=== PATIENT | male | born 1955 | race African-American/Black ===

== ENCOUNTER 2018-08-20 19:44 | Inpatient (IN) | payer OTHER ==
[~2018-08-20] VITALS: Ht 188 cm; Wt 96.8 kg
[~2018-08-20 19:44] MED LIST: ALBUTEROL INH IH; BACTROBAN CREAM30 G1 TOP; BENICAR HCT 401 EAC1 PO; BENICAR40 MG PO; DOXYCYCLINE 10100 M1 PO; GLUCOPHAGE500 MG PO; LANTUS SC; LISINOPRIL40 MG PO; LOPRESSOR25; LOPRESSOR25 PO; MUCINEX600 MG PO; NAPROSYN250 MG PO; NEURONTIN 300300 M1 PO; NORCO 5-325 TA1 EACH PO; NORVASC10 MG PO; NOVOLOG100 UNIT/1 SQ; OMEPRAZOLE20 MG PO; PREDNISONE 20 M20 M1 PO; PREDNISONE 5 MG5 M1; PROVENTIL HFA6.7 G1 INH; SIMVASTATIN40 MG PO; SINGULAIR 10 MG10 M1 PO; TRAMADOL 50 MG50 MG PO; ULTRACET TABLET1 TAB PO
[2018-08-20 19:46] VITALS: BP 154/121
[2018-08-20 21:53] LABS: ABSOLUTE NEUTROPHILS 3.1 thou/uL (1.4-8.2); EOSINOPHILS 1.4 % (0.0-3.0); HEMATOCRIT 39.2 % (42.0-52.0); HEMOGLOBIN 12.9 gm/dL (14.0-18.0); LYMPHOCYTES 28.6 % (24.0-44.0); MCH 31.4 pg (26.0-34.0); MCV 95.2 fL (80.0-100.0); MONOCYTES 10.9 % (1.0-8.0); PLATELET COUNT 129 thou/uL (150-400); POLYS 58.1 % (36.0-66.0); RBC 4.12 mil/uL (4.50-6.00); RDW 15.3 % (10.5-14.5); WBC 5.3 thou/uL (4.0-11.0)
[2018-08-20 21:58] LABS: URINE BILIRUBIN NEGATIVE (Negative); URINE BLOOD 1+ (Negative); URINE CLARITY CLEAR; URINE COLOR YELLOW; URINE GLUCOSE-RANDOM* NEGATIVE (Negative); URINE KETONES NEGATIVE (Negative); URINE LEUKOCYTES-REFLEX NEGATIVE (Negative); URINE NITRITE-REFLEX NEGATIVE (Negative); URINE PROTEIN (DIPSTICK) 2+ (Negative); URINE SPECIFIC GRAVITY 1.025 (1.005-1.035); URINE UROBILINOGEN 0.2 E.U./dl (0.2-1.0)
[2018-08-20 22:05] LABS: CALCIUM 8.9 mg/dL (8.5-10.1); CREATININE 2.1 mg/dL (0.7-1.3); POTASSIUM 4.2 mmol/L (3.5-5.1)
[2018-08-20 22:07] LABS: APTT 25.1 Seconds (24.5-32.8); INR 1.1; PROTIME 11.9 Seconds (9.3-11.4)
[2018-08-20 22:08] LABS: MUCUS 0-3 Light strn/LPF (None Seen); SQUAMOUS None Seen /LPF (0-3)
[2018-08-20 22:09] LABS: BACTERIA-REFLEX None Seen /HPF (None Seen); CRYSTALS None Seen /LPF (None Seen); HYALINE CASTS 0-3 Few /LPF (None Seen); URINE RBC None Seen /HPF (0-2); URINE WBC-REFLEX None Seen /HPF (0-5)
[2018-08-20 22:14] LABS: ALBUMIN 2.6 g/dL (3.4-5.0); TOTAL PROTEIN 8.3 g/dL (6.4-8.2); TROPONIN-I 0.17 ng/mL (<0.06)
[2018-08-20 22:50] LABS: LARGE PLATELETS RARE
[2018-08-20 23:18] VITALS: BP 167/118
[2018-08-20 23:40] VITALS: BP 160/118
[2018-08-20 23:58] VITALS: BP 160/118
[2018-08-20 23:59] VITALS: BP 160/118
--- NOTE | 2018-08-21 05:08 | NUR ---
PT WAS AN ER ADMIT AT 2335 WITH SHORTNESS OF AIR, DIFFICULTY BREATHING, GENERALIZED SWELLING. PT IS ALERT AND ORIENTED. PT IS ON 2L NC. ADMISSION EDUCATION AND ASSESSMENT COMPLETED. UPON ARRIVAL TO THE UNIT, PT IS TARCHYCADIC WITH ELEVATED BLOOD PRESSURE. TOOL AND CUTTER GRINDER SUPERVISOR ORDER TAKERS NOTIFIED. BLOOD PRESSURE MEDS ADMINISTERED TO PT. PT TOLERATED PO INTAKE. PT IS STABLE. DENIES ANY FURTHER NEEDS AT THIS TIME.
[2018-08-21 05:38] LABS: HEMATOCRIT 37.5 % (42.0-52.0); MCH 30.2 pg (26.0-34.0); MCV 94.6 fL (80.0-100.0); RBC 3.97 mil/uL (4.50-6.00); RDW 14.7 % (10.5-14.5); WBC 5.3 thou/uL (4.0-11.0)
[2018-08-21 06:04] VITALS: BP 145/106
[2018-08-21 07:58] VITALS: BP 151/103
[2018-08-21 09:58] LABS: ANION GAP 14 mmol/L (7-16); BUN 37 mg/dL (7-18); CALCIUM 9.7 mg/dL (8.5-10.1); CHLORIDE 102 mmol/L (98-107); CHOLESTEROL 160 mg/dL (<200); CO2 23 mmol/L (21-32); CREATININE 2.2 mg/dL (0.7-1.3); GLUCOSE 141 mg/dL (74-106); HDL CHOLESTEROL 26 mg/dL (>40); LDL CHOLESTEROL 113 mg/dL (<100); MAGNESIUM 1.8 mg/dL (1.8-2.4); POTASSIUM 4.6 mmol/L (3.5-5.1); SODIUM 139 mmol/L (136-145); TC:HDL 6.2 Ratio (Not establshd); TRIGLYCERIDE 109 mg/dL (<150); VLDL 22 mg/dL (<40)
--- NOTE | 2018-08-21 11:03 | EKG ---
[address] [employer] [place] [address] ELECTROCARDIOGRAM REPORT Name: DEMARIO LEVIN Room #: 204-P ADM IN M.R.#: [id number] ������������������ Admission: 08/20/18 ������������������ Attend Phys: Geronimo Saeed MD Discharge: ������������������ Date of : 51 Report #: [id number] ����������������������������������������������������������������� [id number] THIS REPORT FOR: //name// [facility] ED Test Date: 2018-08-20 Test Time: 20:28:11 Pat Name: DEMARIO LEVIN Department: Room: 204 Gender: M Chemist Physical: : 1955 Requested By: Dustin Oro Order Number: [id number] MD: Chico Crane Measurements Intervals [place] Rate: 113 P: 46 W[place]: 156 QRS: -25 QRSD: 100 T: 127 QT: 340 QTc: 467 Interpretive Statements Sinus tachycardia Poor R wave progression Nonspecific ST and T wave abnormality Compared to ECG 06/17/2012 06:15:15 Myocardial infarct finding now present Heart rate has increased Left-axis deviation no longer present Lateral T wave abnormality is less pronounced Electronically Signed On 08-21-2018 11:02:45 SEWING MACHINE ASSEMBLER by Chico Crane [email or web address] ��������������������������������������������� <ELECTRONICALLY SIGNED> ���������������������������������������� By: Chico Crane MD, [facility] ��������������������������������������������� 08/21/18 1102 27 27 Chico Crane MD, [facility] /EPI
[2018-08-21 15:50] VITALS: BP 128/86
[2018-08-21] MEDS ORDERED: ZANAFLEX4 MG PO (16:08)
[2018-08-21] MEDS ORDERED: LIPITOR80 MG PO (16:09)
[2018-08-21] MEDS ORDERED: HYDROCHLOROTH12.5 M1 PO (16:10)
[2018-08-21] MEDS ORDERED: ASPIR 8181 MG PO (16:10)
[2018-08-21] MEDS ORDERED: SPIRIVA INH (16:12)
--- NOTE | 2018-08-21 18:21 | NUR ---
PT CARE ASSUMED APPROX 0700. PT ALERT AND ORIENTED X4. DENIES SOA AND WEANED FOR 2LNC TO RA. C/O LOWER BACK PAIN THIS AM AND HYDROCODONE GIVEN TO MANAGE. PT REPORTS COMPLETE PAIN RELIEF AT THIS TIME. VSS. LASIX GTT REMAINS TO POC. CV CONSULTED AND CHANGED MED DOSAGES. SON AT BEDSIDE AND BOTH RECEIVED UPDATE REGARDING POC. WESTON PATENT. UOP GOOD. NO DISTRESS NOTED.
[2018-08-21 19:36] VITALS: BP 108/77
[2018-08-21 23:09] LABS: GLYCOHEMOGLOBIN (HGB A1C) 7.9 % (4.8-5.6)
[2018-08-22 00:49] VITALS: BP 116/66
[2018-08-22 03:56] LABS: CALCIUM 8.9 mg/dL (8.5-10.1); CREATININE 2.5 mg/dL (0.7-1.3); POTASSIUM 4.1 mmol/L (3.5-5.1)
--- NOTE | 2018-08-22 05:42 | NUR ---
ASSUME CARE 1900. PT/VITALS STABLE. DENIES ANY PAIN AT THIS TIME. TOLERATES ACTIVITY WELL. ASSESSMETN CHARTED. PROGRESSING MODERATELY WITH POC. ADEQUATE REST NOTED THROUGH THE NIGHT. PLAN IS TO CONTINUE DIURESING PATIENT WITH LASIX DRIP AT 10ML/HR. PT TOLERATING DRIP/ELECTROLYTES NORMAL,, VOIDING ADEQUATELY. WESTON IN FOR ADEQUATE REST. WILL CONTINUE TO MONITOR AND FOLLOW WITH POC
[2018-08-22 05:45] VITALS: BP 109/80
[2018-08-22 07:37] VITALS: BP 112/87
--- NOTE | 2018-08-22 09:23 | EKG ---
[place] [address] [facility] [place] [address] ELECTROCARDIOGRAM REPORT Name: DEMARIO LEVIN Room #: 204-P ADM IN M.R.#: [id number] ������������������ Admission: 08/20/18 ������������������ Attend Phys: Ad Alston MD Discharge: ������������������ Date of : 51 Report #: [id number] ����������������������������������������������������������������� [id number] THIS REPORT FOR: //name// [facility] Test Date: 2018-08-22 Test Time: 06:02:51 Pat Name: DEMARIO LEVIN Department: Room: 204 P Gender: M Grape Pruner: DONNA : 1955 Requested By: Chico Crane Order Number: [id number] MD: Chico Crane Measurements Intervals [place] Rate: 88 P: 22 RI: 183 QRS: 0 QRSD: 110 T: 205 QT: 402 QTc: 487 Interpretive Statements Sinus rhythm Ventricular premature complex LVH with IVCD and secondary repol abnrm Borderline prolonged QT interval Compared to ECG 08/20/2018 20:28:11 Ventricular premature complex(es) now present Sinus tachycardia no longer present Electronically Signed On 08-22-2018 9:23:09 CHIEF OF PARTY by Chico Crane [email or web address] ��������������������������������������������� <ELECTRONICALLY SIGNED> ���������������������������������������� By: Chico Crane MD, FACC ��������������������������������������������� 08/22/18 0923 0602 Chico Crane MD, [facility] /EPI
[2018-08-22 10:52] VITALS: BP 112/73
--- NOTE | 2018-08-22 13:10 | 2DMMODE ---
[facility] [address] [place] [address] 2 D/M-MODE ECHOCARDIOGRAM Name: DEMARIO LEVIN Room #: 204-P ADM IN .R.#: [id number] ������������� Admission: 08/20/18 ������������� Attend Phys: Ad Alston MD Discharge: ��� ������������� ��� Date of : 51 Date of Service: 08/22/18 1310 �� Report #: [id number] �������� ��������������������������������������������[id number] THIS REPORT FOR: //name// APPROVED REPORT Study performed: 08/22/2018 09:23:23 EXAM: Comprehensive 2D, Doppler, and color-flow Echocardiogram Patient Location: Bedside Room #: 204 Status: routine BSA: 2.29 HR: 88 bpm BP: 112/87 mmHg Rhythm: NSR Other Information Study Quality: Good Risk Factors: Cardiac Risk Factors: Hyperlipidemia, DM, Smoking Indications Congestive Heart Failure COPD 2D Dimensions IVSd: 12.76 (7-11mm) LVOT Diam: 20.00 (18-24mm) LVDd: 58.66 mm PWd: 15.37 (7-11mm) Ascending Ao: 36.83 (22-36mm) LVDs: 54.60 (25-40mm) Aortic Root: 33.10 mm LV Single Plane 4CH: 25.15 % LV Single Plane 2CH: 21.37 % Biplane EF: 23.1 % Volumes Left Atrial Volume (Systole) Single Plane 4CH: 74.32 mL Single Plane 2CH: 52.28 mL LA ESV Index: 30.00 mL/m2 Aortic Valve AoV Peak Isaiah.: 1.12 m/s AO Peak Gr.: 4.98 mmHg LVOT Max P.87 mmHg [facility] [address] [place] [address] 2 D/M-MODE ECHOCARDIOGRAM Name: POONAMDEMARIO Villarreal Room #: 204-P ADM IN ..#: [id number] ������������� Admission: 08/20/18 ������������� Attend Phys: Ad Alston MD Discharge: ��� ������������� ��� Date of : 51 Date of Service: 08/22/18 1310 �� Report #: [id number] �������� ��������������������������������������������[id number] LVOT Max V: 0.68 m/s YEIMI Vmax: 2.01 cm2 Pulmonary Valve PV Peak Isaiah.: 1.04 m/s PV Peak Gr.: 4.31 mmHg NY End Vmax: 1.48 m/s Pulmonary Vein P Vein S: 0.62 m/s P Vein A: 0.25 m/s P Vein D: 0.57 m/s P Vein A Dur.: 72.7 msec P Vein S/D Ratio: 1.09 Tricuspid Valve TR Peak Isaiah.: 2.35 m/s RAP Estimate: 7.00 mmHg TR Peak Gr.: 22.03 mmHg PA Pressure: 29.00 mmHg TV Max P.00 mmHg Left Ventricle The left ventricle is normal size. There is global hypokinesis of the left ventricle. Mild to moderate concentric left ventricular hypertrophy. Left ventricular systolic function is severely decreased. LVEF is 20-25%. This study is not technically sufficient to allow evaluation of the LV diastolic function. Right Ventricle Right ventricle is dilated. Right ventricle is hypokinetic. Atria The left atrium size is normal. Right atrium is dilated. Aortic Valve The aortic valve is sclerotic. No aortic regurgitation is present. There is no aortic valvular stenosis. Mitral Valve The mitral valve is normal in structure. Moderate mitral regurgitation. No evidence of mitral valve stenosis. Tricuspid Valve The tricuspid valve is normal in structure. Moderate tricuspid regurgitation. Pulmonary artery pressure is 30 mmHg. Pulmonic Valve The pulmonary valve is normal in structure. Trace pulmonic [facility] [address] [place] [address] 2 D/M-MODE ECHOCARDIOGRAM Name: PRINCEDEMARIO Augustine Room #: 204-P [facility] IN .R.#: [id number] ������������� Admission: 08/20/18 ������������� Attend Phys: Ad Alston MD Discharge: ��� ������������� ��� Date of : 51 Date of Service: 08/22/18 1310 �� Report #: [id number] �������� ��������������������������������������������[id number] regurgitation. Great Vessels The aortic root is normal in size. IVC is normal in size and collapses >50% with inspiration. Pericardium Trace pericardial effusion. <Conclusion> Left ventricular systolic function is severely decreased. LVEF is 20-25%. The aortic valve is sclerotic. No aortic regurgitation or stenosis The mitral valve is normal in structure. Moderate mitral regurgitation. Moderate tricuspid regurgitation. Pulmonary artery pressure of 30 mmHg. Trace pericardial effusion. ��������������������������������������������� <ELECTRONICALLY SIGNED> ���������������������������������������� By: Chico Crane MD, FACC ��������������������������������������������� 08/22/181309 09 09 Chico Crane MD, FACC /INF
[2018-08-22 14:57] VITALS: BP 107/77
--- NOTE | 2018-08-22 15:02 | NUR ---
VSS REMAINS NSR HR 80-90, PT HAVING SHORT RUNS VT 3-5 BT, WITH ONE 29 BT RUN AT 12N , PT ASYTOMATIC, BP 112/73. IV LASIX DC'D AT 1500 TODAY, DIEURESING WELL THROUGH WESTON. UP TO CHAIR WITH PT, NEEDS WALKER AND ASSIST TO BE STEADY WILL CONTINUE TO MONITER AND CARE FOR PT PER PLAN OF CARE
[2018-08-22 20:50] VITALS: BP 100/72
--- NOTE | 2018-08-23 03:20 | NUR ---
[facility] CARE CARE 1900. VSS- 10 BT RUN VTACH-NONSYMPTOMATIC. ASSESSMENT CHARTED. PT DENIES ANY CP, SOA, OR OTHER CONCERNS. UP TO BATHROOM X1 ASSIST WITH WALKER TO BATHROOM, VOIDING WELL. PLAN FOR LABS THIS AM. WILL CONTINUE TO MONITOR AND WITH POC.
[2018-08-23 03:41] VITALS: BP 100/73
[2018-08-23 04:38] LABS: CALCIUM 8.8 mg/dL (8.5-10.1); CREATININE 2.6 mg/dL (0.7-1.3); POTASSIUM 3.6 mmol/L (3.5-5.1)
[2018-08-23 07:48] VITALS: BP 105/74
[2018-08-23 11:16] VITALS: BP 122/90
[2018-08-23 14:47] VITALS: BP 94/59
--- NOTE | 2018-08-23 15:21 | NUR ---
met with patient who resides at home with grandson, age 9, his son and dtr. Patient reports always family present at home to assist as needed. He resides in independent home with all needs on one level. He uses a cane for ambulation but has been using a walker here in hospital. Patient will need walker for home. Discussed possible HH [place]. Patient has no PCP. [facility]. Gave patient list of [facility] providers. He plans to review with son, offered to make apt prior to leaving hospital. casemgt following.
--- NOTE | 2018-08-23 15:48 | NUR ---
VSS REMIANS NSR WITH SHORT PERIODS OF ST IN THE 120'S LASTING 30 MINUTES , ALSO SHORT 3-4 BT RUNS OF VT, PT ASYTOMATIC. BP 105-122/90. LUNGS DIMINISHED O2 SAT RA IS 94%. PT UP WITH PT TODAY WITH HR UP TO 120 WITH ACTIVITY. PT UP WITH WALKER AND SBA, STEADIER TODAY ON FEET. WILL CONTINUE TO MONITER AND CARE FOR PT PER PLAN OF CARE
[2018-08-23 20:26] VITALS: BP 103/73
[2018-08-24 04:03] VITALS: BP 98/66
[2018-08-24 04:06] LABS: CALCIUM 8.6 mg/dL (8.5-10.1); CREATININE 2.6 mg/dL (0.7-1.3); POTASSIUM 3.3 mmol/L (3.5-5.1)
--- NOTE | 2018-08-24 04:50 | NUR ---
PT HAD COMPANY LAST NOC, ALERT/ORIENTED X4, PAIN CONTROLED BY NORCO, ACCUCHECK AC/HS AND TREATED PER SLIDING SCALE, UP X1 ASSIST, VOIDING, ON FLUID RESTRICTION AND COMPLIANT, ON ROOM AIR, POTASSIUM THIS MORNING DROPPED TO 3.3 (3.6 YESTERDAY), LUNGS DIMINISHED, CONTINUE TO ENC. TO USE IS AGGRESSIVELY, HOURLY ROUNDING, SINUS RHYTHM ON MONITOR, NO RUNS OF VTACH NOTED, MONITORED.
[2018-08-24 08:25] VITALS: BP 111/63
[2018-08-24 11:32] VITALS: BP 120/73
[2018-08-24] MEDS ORDERED: LISINOPRIL20 MG PO (12:49)
[2018-08-24] MEDS ORDERED: DEMADEX20 MG PO (12:49)
[2018-08-24] MEDS ORDERED: COREG25 MG PO (13:23)
[2018-08-24 15:08] VITALS: BP 112/80
--- NOTE | 2018-08-24 17:14 | NUR ---
Patient to dc home. Patient interested in f/u care with Dr Viramontes. Called office and sp with scheduling who reports no opening until October. She reports for casemgt to leave message with RN who will call return call to determine if can get patient in sooner. Left message at this time no return call today. obtained walker for patient for home via [employer]. Encouraged patient to cont to call for apt.
--- NOTE | 2018-08-24 18:46 | NUR ---
ASSUMED PATIENT CARE THIS AM. PATIENT A&OX4, ROOM AIR. UP AD MAUREEN IN ROOM WITH WALKER. PAIN STATED IN LOWER EXTREMITIES WITH EDEMA PRESENT, MEDICATION GIVEN WITH RELIEF. PLAN TO CONTINUE TO DIURESE AND WATCH ELECTROLYTES. PLAN TO DISCHARGE TOMORROW. PATIENT HAS OWN WALKER AT BEDSIDE ISSUED THIS AFTERNOON.
[2018-08-24 19:00] VITALS: BP 117/75
--- NOTE | 2018-08-25 03:42 | NUR ---
ASSUMED PT CARE AT 1900. PT A/OX4, VITAL SIGNS STABLE, ASSESSMENT CHARTED. NO COMPLAINTS OF PAIN/CHEST PAIN. NO COMPLAINTS OF SOA. PT RESTED WELL THROUGH THE THE NIGHT. PROGRESSING TOWARD PALN OF CARE. WILL CONTINUE TO MONITOR.
[2018-08-25 04:32] VITALS: BP 104/70
[2018-08-25 04:41] LABS: CALCIUM 8.9 mg/dL (8.5-10.1); CREATININE 2.6 mg/dL (0.7-1.3); POTASSIUM 3.7 mmol/L (3.5-5.1)
[2018-08-25 07:35] VITALS: BP 115/77
[2018-08-25] MEDS ORDERED: LIPITOR80 MG PO (08:47)
[2018-08-25] MEDS ORDERED: K-DUR 20 MEQ T20 MEQ PO (08:47)
[2018-08-25] MEDS ORDERED: CARVEDILOL25 MG PO (08:47)
[2018-08-25 11:50] VITALS: BP 126/86
[2018-08-25 12:36] VITALS: BP 126/86
--- NOTE | 2018-08-25 12:37 | NUR ---
Pt provided address and phone number for Dr. Viramontes's office and encouraged him to call them to work on scheduling a new pt appt. Message left for the office again today to let them know he was dcing and needed a f/u to be scheduled. Pt dcing home today.
--- NOTE | 2018-08-25 15:40 | NUR ---
ASSUMED PATIENT CARE THIS AM. PATIENT A&OX4, ROOM AIR. NO N/V, N/T STATED. PAIN MANAGED WITH MEDICATION. PATIENT UP WITH WALKER IN ROOM. PATIENT VOIDS PER URINAL. TOLERATING DIET. PLAN TO DISCHARGE HOME THIS AFTERNOON/EVENING WHEN SON ARRIVES. NO COMPLAINTS STATED.
[2018-08-25 16:35] VITALS: BP 100/72
--- NOTE | 2018-08-25 19:47 | NUR ---
ASSUMED PT CARE AT CHANGE OF SHIFT. PT IN BED WAITING FOR SON TO MANIFOLD OPERATOR. PT A/OX4, BG 103, PM MEDS GIVEN PER PT REQUEST. PAIN MEDICATION GIVEN TO MANAGE PAIN IN BACK AND LOWER EXTREMITIES. PT'S SON ARRIVED AT ABOUT 191. IV DISCONTINUED. PT LEFT UNIT AT ABOUT 1930. PT STALE AT DISCHARGE.
== END 2018-08-25 19:30 | disposition home or self-care (01) | DRG 682 ==
LOC: ER 19:44 → 2N 20:16 → EROBS 20:16 → 2N 23:05
PROVIDERS: Emergency Medicine; Internal Medicine; Nurse Practitioner; ADMIT Hospitalist
DX: N17.9 Acute kidney failure, unspecified (principal); J96.01 Acute respiratory failure with hypoxia; I50.43 Acute on chronic combined systolic (congestive) and diastolic (congestive) heart failure; I42.9 Cardiomyopathy, unspecified; I47.2 Ventricular tachycardia; I13.0 Hypertensive heart and chronic kidney disease with heart failure and stage 1 through stage 4 chronic kidney disease, or unspecified chronic kidney disease; J45.909 Unspecified asthma, uncomplicated; D69.6 Thrombocytopenia, unspecified; R60.1 Generalized edema; E78.5 Hyperlipidemia, unspecified; F17.210 Nicotine dependence, cigarettes, uncomplicated; N18.4 Chronic kidney disease, stage 4 (severe); E11.22 Type 2 diabetes mellitus with diabetic chronic kidney disease; R74.0 Nonspecific elevation of levels of transaminase and lactic acid dehydrogenase [LDH]; G47.33 Obstructive sleep apnea (adult) (pediatric); J44.9 Chronic obstructive pulmonary disease, unspecified; Z60.2 Problems related to living alone; T50.2X5A Adverse effect of carbonic-anhydrase inhibitors, benzothiadiazides and other diuretics, initial encounter; E87.6 Hypokalemia; F10.10 Alcohol abuse, uncomplicated; M62.84 Sarcopenia; K21.9 Gastro-esophageal reflux disease without esophagitis; Z91.048 Other nonmedicinal substance allergy status; Z91.19 Patient's noncompliance with other medical treatment and regimen; Z79.82 Long term (current) use of aspirin; Z79.899 Other long term (current) drug therapy; Z82.49 Family history of ischemic heart disease and other diseases of the circulatory system; Z71.6 Tobacco abuse counseling; Z99.81 Dependence on supplemental oxygen
CPT/HCPCS: 10078; 10081

== ENCOUNTER 2020-09-03 11:45 | Inpatient (IN) | payer MEDICARE, OTHER ==
[~2020-09-03] VITALS: Ht 188 cm; Wt 84.4 kg
--- NOTE | ~2020-09-03 | HC ---
[facility] [place] [address] CONSULTATION Name: DEMARIO LEVIN Room #: 462-P ADM IN M.R.#: [id number] Admission: 09/03/20 Attend Phys: Geronimo Saeed MD Discharge: Date of : 51 Report #: [id number] THIS REPORT FOR: cc: Rodney Ramirez Kevin E. DO Al-Absi, Ahmed I. MD ~ REASON FOR CONSULTATION: Acute kidney injury on top of chronic kidney disease. REASON FOR PRESENTATION: Worsening bilateral lower extremity edema. HISTORY OF PRESENT ILLNESS: This is a 65-year-old with extensive past medical history including and not limited to diabetes mellitus, hypertension, hyperlipidemia, status post AICD placement. He has a history of COPD, obstructive sleep apnea. He also has history of atrial fibrillation. He has a history of chronic kidney disease. He is known to have alcoholic cirrhosis with hepatitis C. He presented after his family was concerned about significant lower extremity edema and weight gain. The patient's hospitalization is usually at [facility]. He was told that he might need to go on dialysis. On arrival to the Emergency Room, the patient's creatinine was elevated at 6.7. We only have laboratory values on this patient from 2019 and at that time about a year ago, his creatinine was in the 2.5 range. He had a Abad catheter placed in the Emergency Room with about a liter of urine so far. He has significant hyponatremia on arrival. The patient was initiated on appropriate therapy for his current comorbid conditions. I was asked to evaluate the patient regarding his acute kidney injury and chronic kidney disease. MEDICATIONS: 1. Albuterol. 2. Lasix 40 mg twice a day. 3. Levothyroxine. 4. Gabapentin. 5. Pantoprazole. ALLERGIES: None. PAST MEDICAL HISTORY: Extensive and includes the followin. COPD. 2. Hypertension. 3. Diabetes mellitus. 4. Cardiomyopathy. 5. Obstructive sleep apnea. 6. Congestive heart failure. 7. Status post automatic implantable cardioverter-defibrillator. 8. History of liver cirrhosis. 9. Hepatitis C. 10. Chronic kidney disease with a baseline creatinine in the 2 range. [facility] [address] [place] [address] CONSULTATION Name: DEMARIO LEVIN Room #: 462-P [facility] IN M.R.#: [id number] Admission: 09/03/20 Attend Phys: Geronimo Saeed MD Discharge: Date of : 51 Report #: [id number] FAMILY HISTORY: Significant for hypertension. SOCIAL HISTORY: No drug or alcohol abuse. REVIEW OF SYSTEMS: GENERAL: Significant for weakness and lethargy. CARDIOVASCULAR: Significant for shortness of breath. PULMONARY: No cough or hemoptysis. GASTROINTESTINAL: No nausea or vomiting. GENITOURINARY: No frequency, no urgency. MUSCULOSKELETAL: As per the history of present illness. PHYSICAL EXAMINATION: VITAL SIGNS: Temperature 37, pulse rate is 50, respiratory rate is 18, blood pressure is 131/56. HEAD AND NECK: No jugular venous distention. CHEST: Decreased air entry bilaterally. CARDIOVASCULAR: No rub. ABDOMEN: Soft. LOWER EXTREMITIES: +4 edema. LABORATORY DATA: Hemoglobin is 8.4, platelets are 80. White blood cell count is 3000. Sodium is 125, BUN is 63, creatinine is 6.7. IMPRESSION AND PLAN: 1. Acute kidney injury. 2. Chronic kidney disease. 3. Fluid overload. 4. Cardiomyopathy, severe. Last echo in 2019 showed ejection fractions of around 20%. 5. Initiate the patient on appropriate diuresis. 6. We will see how he is going to respond to the current diuretic regimen. 7. His kidney function has significantly worsened in the last year and we will have to obtain the medical records from [facility]. 8. Salt restriction. 9. Unfortunately, he has so many comorbid conditions including his ongoing liver issues, heart failure. He is not a candidate for hemodialysis and he would not do well at all with hemodialysis, we will discuss with his family members. 10. Blood pressure seems to be stable on beta duy. Avoid angiotensin [place] [address] CONSULTATION Name: DEMARIO LEVIN Room #: 462-P ADM IN M.R.#: [id number] Admission: 09/03/20 Attend Phys: Geronimo Saeed MD Discharge: Date of : 51 Report #: [id number] 11. Discontinue gabapentin. 12. Continue to follow daily electrolytes and renal function panel. By: 0759 0818 Cuco Wen, /nt
[~2020-09-03 11:45] MED LIST changes: +ASPIR 8181 MG PO; +CARVEDILOL25 MG PO; +COREG25 MG PO; +DEMADEX20 MG PO; +HYDROCHLOROTH12.5 M1 PO; +K-DUR 20 MEQ T20 MEQ PO; +LIPITOR80 MG PO; +LISINOPRIL20 MG PO; +SPIRIVA INH; +ZANAFLEX4 MG PO
[2020-09-03 11:46] VITALS: BP 136/88
[2020-09-03] MEDS ORDERED: FUROSEMIDE 40 M40 MG PO (11:51)
[2020-09-03] MEDS ORDERED: LEVO-T25 MCG PO (11:52)
[2020-09-03] MEDS ORDERED: ONDANSETRON HCL4 M2 PO (11:56)
[2020-09-03] MEDS ORDERED: OYSTER SHELL C500 MG PO (11:57)
[2020-09-03] MEDS ORDERED: PROTONIX40 M2 PO (11:57)
[2020-09-03] MEDS ORDERED: PRO-STAT LIQUID30 M1 PO (11:58)
[2020-09-03] MEDS ORDERED: MIRALAX119 GM PO (11:58)
[2020-09-03] MEDS ORDERED: PROMS25 WY RECTAL (11:59)
[2020-09-03] MEDS ORDERED: RENAL-VITE TAB0.8 MG PO (11:59)
[2020-09-03] MEDS ORDERED: SENNA PLUS TAB1 EACH PO (12:00)
[2020-09-03] MEDS ORDERED: FLOMAX0.4 MG PO (12:00)
[2020-09-03 12:12] LABS: HEMATOCRIT 25.3 % (42.0-52.0); HEMOGLOBIN 8.4 gm/dL (14.0-18.0); MCH 30.5 pg (26.0-34.0); MCHC 33.2 g/dL (28.0-37.0); MCV 91.9 fL (80.0-100.0); RBC 2.75 mil/uL (4.50-6.00); RDW 18.1 % (10.5-14.5); WBC 2.9 thou/uL (4.0-11.0)
[2020-09-03 12:26] LABS: ANION GAP 8 mmol/L (7-16); BUN 62 mg/dL (7-18); CHLORIDE 90 mmol/L (98-107); CO2 26 mmol/L (21-32); CREATININE 6.4 mg/dL (0.7-1.3); GLUCOSE 91 mg/dL (74-106); POTASSIUM 4.1 mmol/L (3.5-5.1); SODIUM 124 mmol/L (136-145)
[2020-09-03 12:36] LABS: ALBUMIN 2.7 g/dL (3.4-5.0); SGOT 66 U/L (15-37); SGPT 34 U/L (30-65); TOTAL BILIRUBIN 2.5 mg/dL (0.2-1.0); TOTAL PROTEIN 8.2 g/dL (6.4-8.2); TROPONIN-I <0.06 ng/mL (<0.06)
[2020-09-03 13:41] LABS: ABSOLUTE NEUTROPHILS 1.4 thou/uL (1.4-8.2)
[2020-09-03 13:42] LABS: POLYCHROMASIA SLIGHT
[2020-09-03 13:45] LABS: PLATELET COUNT 84 thou/uL (150-400)
--- NOTE | 2020-09-03 14:13 | EKG ---
[address] [place] [address] ELECTROCARDIOGRAM REPORT Name: DEMARIO LEVIN Room #: 170-5 ADM IN M.R.#: [id number] Admission: 09/03/20 Attend Phys: Geronimo Saeed MD Discharge: Date of : 51 Report #: [id number] [facility] ED Test Date: 2020-09-03 Test Time: 11:59:47 Pat Name: DEMARIO LEVIN Department: Room: 170 Gender: M Upscale Security Officer: cu : 1955 Requested By: Nish Conway Order Number: [id number] MD: Theron Ma Measurements Intervals [place] Rate: 50 P: 23 CT: 135 QRS: 174 QRSD: 220 T: 11 QT: 698 QTc: 637 Interpretive Statements Atrial-sensed ventricular-paced rhythm No further analysis attempted due to paced rhythm Compared to ECG 08/22/2018 06:02:51 Sinus rhythm no longer present Ventricular premature complex(es) no longer present Intraventricular conduction delay no longer present Left ventricular hypertrophy no longer present Early repolarization no longer present Electronically Signed On 09-03-2020 14:13:06 COIL CONNECTOR REPAIRER by Theron Ma [email or web address] <ELECTRONICALLY SIGNED> By: Theron Ma MD, [facility] 09/03/20 1413 1159 1159 Theron Ma MD, [facility] /EPI
[2020-09-03 14:39] LABS: OBSERVED RETIC COUNT 1.23 % (0.6-2.6)
[2020-09-03 14:48] VITALS: BP 127/65
--- NOTE | 2020-09-03 15:03 | NUR ---
THIS FUNERAL CAR DRIVER SPOKE WITH DR KRAUSE REGARDING PT C/O NAUSEA.
[2020-09-03 15:37] VITALS: BP 116/66
[2020-09-03 16:00] VITALS: BP 142/67
[2020-09-03 16:13] VITALS: BP 142/67
[2020-09-03 17:18] LABS: % SATURATION 46 % (20-39); IRON 106 ug/dL (65-175); TIBC 232 ug/dL (250-450)
--- NOTE | 2020-09-03 19:32 | NUR ---
PT ARRIVED TO FLOOR FROM ED AT 1600 IN STABLE CONDITION.ADMISSION HISTORY, ASSESSMENTAND CARE PLAN COMPLETED.DR CALHOUN AND ALBERTO HERE.NEW ORDER NOTED. PT BLOOD SUGAR AT DINNER WAS 78.NO INSULIN GIVEN.NOTIFIED PT SON ABOUT ADMISSION TO UNIT AND SECRET CODE GIVEN.REPORT OFF TO KATLYN SCHNEIDER.
[2020-09-03 19:44] VITALS: BP 131/56
--- NOTE | 2020-09-04 04:52 | NUR ---
Assumed pt care at 1900. A/OX4,VSS.Up with SBA. C/o pain to guicho shoulders and BLE,Temitope MLT notified and orders obtained for [place]/Tylenol;medicated with [place] and effective. Has a lemus to DD with dark yellow urine noted,passing flatus. Vpaced on telemetry. Pt woke up with confusion this morning,fall precautions in place and frequent checks on pt;easily redirected. Will continue to monitor pt.
[2020-09-04 05:46] LABS: ABSOLUTE NEUTROPHILS 1.8 thou/uL (1.4-8.2); EOSINOPHILS 5.1 % (0.0-3.0); HEMATOCRIT 24.9 % (42.0-52.0); HEMOGLOBIN 8.4 gm/dL (14.0-18.0); LYMPHOCYTES 22.6 % (24.0-44.0); MCH 30.8 pg (26.0-34.0); MCHC 33.9 g/dL (28.0-37.0); MONOCYTES 10.4 % (1.0-8.0); PLATELET COUNT 80 thou/uL (150-400); POLYS 60.9 % (36.0-66.0); RBC 2.74 mil/uL (4.50-6.00); RDW 18.2 % (10.5-14.5)
[2020-09-04 05:56] LABS: APTT 35.9 Seconds (24.5-32.8); INR 1.5; PROTIME 16.3 Seconds (9.3-11.4)
[2020-09-04 06:14] LABS: ALBUMIN 2.6 g/dL (3.4-5.0); ANION GAP 9 mmol/L (7-16); BUN 63 mg/dL (7-18); CALCIUM 8.7 mg/dL (8.5-10.1); CHLORIDE 91 mmol/L (98-107); CO2 25 mmol/L (21-32); CREATININE 6.7 mg/dL (0.7-1.3); GLUCOSE 81 mg/dL (74-106); MAGNESIUM 2.2 mg/dL (1.8-2.4); POTASSIUM 4.1 mmol/L (3.5-5.1); SGOT 64 U/L (15-37); SGPT 30 U/L (30-65); SODIUM 125 mmol/L (136-145); TOTAL BILIRUBIN 2.4 mg/dL (0.2-1.0); TOTAL PROTEIN 8.1 g/dL (6.4-8.2); TROPONIN-I <0.06 ng/mL (<0.06)
--- NOTE | 2020-09-04 08:19 | EKG ---
[address] [place] [address] ELECTROCARDIOGRAM REPORT Name: DEMARIO LEVIN Room #: 462- ADM IN M.R.#: [id number] Admission: 09/03/20 Attend Phys: Geronimo Saeed MD Discharge: Date of : 51 Report #: [id number] [facility] Test Date: 2020-09-04 Test Time: 07:31:20 Pat Name: DEMARIO LEVIN Department: Room: 462 Gender: M Costume Seamstress: NAZARIO : 1955 Requested By: Chico Crane Order Number: [id number] MD: Chico Crane Measurements Intervals [place] Rate: 61 P: 0 SC: 55 QRS: 170 QRSD: 151 T: 18 QT: 519 QTc: 523 Interpretive Statements Sinus rhythm with probable biventricular pacing Compared to ECG 09/03/2020 11:59:47 No significant change was found Electronically Signed On 09-04-2020 8:19:10 CITY BUS DRIVER by Chico Crane [email or web address] <ELECTRONICALLY SIGNED> By: Chico Crane MD, [facility] 09/04/20818 0 0 Chico Crane MD, FACC /EPI
[2020-09-04 08:20] VITALS: BP 128/59
--- NOTE | 2020-09-04 10:48 | 2DMMODE ---
[facility] [place] [address] 2 D/M-MODE ECHOCARDIOGRAM Name: DEMARIO LEVIN Room #: 462-P ADM IN M.R.#: [id number] Admission: 09/03/20 Attend Phys: Geronimo Saeed MD Discharge: Date of : 51 Report #: [id number] THIS REPORT FOR: cc: Rodney Ramirez,Theron Christianson MD [facility] ~ APPROVED REPORT Study performed: 09/04/2020 09:35:22 EXAM: Comprehensive 2D, Doppler, and color-flow Echocardiogram Patient Location: Bedside Room #: 462 Status: routine BSA: 2.12 HR: 61 bpm BP: 128/59 mmHg Rhythm: NSR Other Information Study Quality: Good Indications Bilateral leg edema. Hx: Cardiomyopathy (20-25%), ICD, CHF, Afib, COPD, HTN, HLD. 2D Dimensions RVDd: 34.35 mm IVSd: 10.12 (7-11mm) LVOT Diam: 20.07 (18-24mm) LVDd: 53.62 mm PWd: 13.49 (7-11mm) Ascending Ao: 10.26 (22-36mm) LVDs: 27.49 (25-40mm) Left Atrium: 46.50 (27-40mm) Aortic Root: 36.69 mm Volumes Left Atrial Volume (Systole) Single Plane 4CH: 81.07 mL Single Plane 2CH: 80.75 mL LA ESV Index: 42.00 mL/m2 Aortic Valve AoV Peak Isaiah.: 1.29 m/s AO Peak Gr.: 6.67 mmHg LVOT Max P.54 mmHg LVOT Max V: 1.28 m/s [facility] [place] [address] 2 D/M-MODE ECHOCARDIOGRAM Name: POONAMDEMARIO Room #: 462-P [facility] IN .R.#: [id number] Admission: 09/03/20 Attend Phys: Geronimo Saeed MD Discharge: Date of : 51 Report #: [id number] Vmax: 3.13 cm2 Mitral Valve E/A Ratio: 1.3 MV Decel. Time: 277.20 ms MV E Max Isaiah.: 0.62 m/s MV A Isaiah.: 0.48 m/s MV PHT: 80.39 ms IVRT: 83.04 ms Pulmonary Valve PV Peak Isaiah.: 1.27 m/s PV Peak Gr.: 6.41 mmHg Tricuspid Valve TR Peak Isaiha.: 3.54 m/s RAP Estimate: 15.00 mmHg TR Peak Gr.: 50.15 mmHg PA Pressure: 65.00 mmHg Left Ventricle The left ventricle is normal size. Mild concentric left ventricular hypertrophy. Left ventricular systolic function is low normal. LVEF is 5055 %. Right Ventricle Right ventricle is dilated. The right ventricular systolic function is normal. Device lead is present in the right ventricle. Atria Moderate biatrial enlargement. Aortic Valve The aortic valve is normal in structure. No aortic regurgitation is present. There is no aortic valvular stenosis. Mitral Valve The mitral valve is normal in structure. Mild to moderate mitral regurgitation. Tricuspid Valve The tricuspid valve is normal in structure. Moderate tricuspid regurgitation. Estimated PAP is 60-65mmHg. Pulmonic Valve The pulmonary valve is normal in structure. Mild pulmonic regurgitation. [facility] [place] [address] 2 D/M-MODE ECHOCARDIOGRAM Name: DEMARIO LEVIN Room #: 462-P [facility] IN M.R.#: [id number] Admission: 09/03/20 Attend Phys: Geronimo Saeed MD Discharge: Date of : 51 Report #: [id number] Great Vessels The aortic root is normal in size. IVC is dilated and collapses <50% with inspiration. Pericardium Trivial pericardial effusion. <Conclusion> Normal left ventricular size/mild concentric hypertrophy Ejection fraction 50-55% Grade 1 diastolic dysfunction Mildly dilated RV/abnormal systolic function Moderate biatrial enlargement Color-flow Doppler study was performed of the aortic/mitral/tricuspid/pulmonary valve Normal aortic valve structure and function Mild-moderate posteriorly directed mitral valve insufficiency Moderate tricuspid valve insufficiency Pulmonry artery systolic pressure estimated 60-65 mmHg Dilated IVC, minimally responsive to respiration No pericardial effusion <ELECTRONICALLY SIGNED> By: Theron Ma MD, FACC 09/04/207 46 46 Theron Ma MD, FACC /INF
--- NOTE | 2020-09-04 12:04 | NUR ---
PT ADMTITED RELATED TO RENAL FAILURE,PERIPHERAL EDEMA. CM REVIEWED CHART AND SPOKE WITH CARE TEAM. CM CALLED AND SPOKE WITH PT'S SON THIS DAY. HE INDICATED THAT PT HAD BEEN AT [facility] FOR SKILLED REHAB SERVICES PRIOR TO ADMISSION. SON WAS NOT PLEASED WITH THE CARE PT HAD BEEN GETTING THERE AND PT WAS ADMITTED TO HOSPITAL. HE INDICATED THAT PT HAD BEEN AT [facility] PRIOR TO GOING TO [facility] AND THAT PRIOR TO THAT HOSPITAL STAY HE HAD BEEN LIVING IN A HOUSE WITH HIS SON, DTR, AND GSON. HE INDICATED THAT PT HAD BEEN ABLE TO DO HIS OWN ADLS AND HAD BEEN USING A CANE OR A FWW TO ASSIST WITH MOBILITY. SO INDICATED HE IS RECEPTIVE TO SKILLED POST ACUTE CARE STAY IF RECOMMENDED UPON DC BUT NOT AT [facility]. CM TO EMAIL HIM LIST OF [facility] FACILITIES TO [email or web address]. PT HAD ECHO THIS DAY. CM TO FOLLOW INDICATED WITH DC PLANNING.
[2020-09-04 15:55] VITALS: BP 147/70
--- NOTE | 2020-09-04 18:06 | NUR ---
Assumed pt care at 7am.Pt in bed very drowsy with slurred speech.Assessment completed.vss low blood sugar noted.Treated with apple juice.Dr Winkler and Ray here,order noted.Echo done after breakfast.Pt rhythm per manufacturing director was paced.Pt requested to dangle at bs for 30 minutes this evening.Trouble Locater stays with pt and later transfered back to bed.[place] given for bilateral shoulder pain.Will continue to monitor.
[2020-09-04 20:00] VITALS: BP 141/62
--- NOTE | 2020-09-05 01:16 | NUR ---
reassessment complete patient c/o generalized pain gave prn hydrocodone 5/325 @ 2303. resident currently in bed with eyes closed respirations even non labored at 18 bpm. breathing treatment given by RT @ 9970 tolerated well . no furthur c/o SOB. No c/o pain or discomforted noted.
[2020-09-05 05:49] LABS: ALBUMIN 2.5 g/dL (3.4-5.0); CALCIUM 8.3 mg/dL (8.5-10.1); CREATININE 6.9 mg/dL (0.7-1.3); POTASSIUM 4.1 mmol/L (3.5-5.1)
[2020-09-05 07:56] VITALS: BP 137/62
[2020-09-05 10:59] VITALS: BP 138/75
--- NOTE | 2020-09-05 12:32 | NUR ---
CM FOLLOWED UP WITH PT'S SON THIS DAY. HE ASKED THAT REFERR[facility] BE [facility] TO [facility] AND TO [facility] FOR REVIEW FOR SHORT TERM POST ACUTE CARE STAY. REERRALS SENT. CM TO FOLLOW INDICATED WITH DC PLANNING.
--- NOTE | 2020-09-05 13:26 | NUR ---
FAXED SNF REFERRAL AND NEGATIVE COVID RESULTS TO [facility]. WILL CALL TO CONFIRM THEY RECEIVED AND BED AVAILABILITY. [facility] P [phone]; FAX [phone] [facility] - P [phone]; FAX [phone]; GIORG[facility]/ADMISSIONS [phone]
[2020-09-05 15:36] VITALS: BP 145/76
[2020-09-05 19:44] VITALS: BP 146/73
--- NOTE | 2020-09-06 01:10 | NUR ---
PT IS A/O X4 AND IS UP WITH ASSISTANCE. UNSTEADY ON HIS FEET. A/O X2. AVPACED ON THE MONITOR. ROOM AIR. WESTON IN PLACE DRAINING DARK YELLOW URINE. NO BM THIS SHIFT. BILAT LE EDEMA NOTED. C/O PAIN. PRN PAIN MEDICATION PROVIDED DIRECTED. FALL PRECAUTIONS IN PLACE, CALL LIGHT IS WITHIN REACH
[2020-09-06 08:10] VITALS: BP 150/76
--- NOTE | 2020-09-06 10:48 | NUR ---
ROXANA SPOKE WITH HEIDE AT THE [facility] YESTERDAY AND SHE INDICATED THAT SHE WAS CONCERNED ABOUT ACCEPTING PT HE MAY BE IN COPAY DAYS AND THEY DON'T TAKE MEDICAID. CM ATTEMTPED PC TO PT'S SON WITH NO ANSWER. ROXANA SPOKE WITH PT'S SON THIS AM AND INDICATED THAT IT WOULD BE BENEFICIAL TO PICK MO FACILITY FOR SECONDARY MEDICAID COPAY COVERAGE. HE ASKED THAT REFERRALS BE SENT TO [facility] AND [facility]. REFERRALS SENT. CM FOLLOWING REGARDING DC PLANNING.
[2020-09-06 12:05] VITALS: BP 139/72
--- NOTE | 2020-09-06 15:37 | NUR ---
FAXED REFERRAL TO [facility] FOR SKILLED STAY AT [facility] WILL F/U ON WEDNESDAY.
[2020-09-06 16:12] VITALS: BP 137/72
--- NOTE | 2020-09-06 20:14 | NUR ---
Assumed pt care this am. Pt is alert & oriented x4 but delay response. Pt has R AC. Pt is maximum assist and has FRANCINE edema on the legs. Pt has pacemaker and on RA. Medication is well tolerated. Given hydrocodone for pain. Pt on the bed sleeping, bed on the lowest position, side rails up x2, & call light within reach. Endorse night nurse.
--- NOTE | 2020-09-07 05:04 | NUR ---
Pt. rested quietly at intervals during the night when checked on during frequent rounds. He c/o pain and po pain meds given (see emar) with some relief noted. Bed alarm is on.
[2020-09-07 08:21] VITALS: BP 142/69
[2020-09-07 16:15] VITALS: BP 135/63
--- NOTE | 2020-09-07 17:27 | NUR ---
Pt is alert & oriented x4. Up with maximum assist and has a feeder. Pt has lemus cath & urine output is dark yellow with sediments. Pt on RA. Pt IV site on R AC. Pt on RA. Pain given hydrocodone for pain. Pt on the bed watching TV, bed on the lowest position, side rails up, call light within reach. Will continue to monitor. Follow POC.
[2020-09-07 20:50] VITALS: BP 148/80
--- NOTE | 2020-09-08 03:45 | NUR ---
PT CARE ASSUMED WITH PT IN BED SLEEPING AT 1900.PT IS A/O X4 AND FORGETFUL .PT IS UP WITH X2 ASSIST TO BSC .PT HAS A WESTON CATHETER IN PLACE.PT IS CONTINENT TO BOWEL.PT C/O BLE PAIN AND PAIN MANAGED WITH NORCO.IV ACCESS ON RAC SL.PT HAS A PACEMAKER.PT IS ABLE TO TURN FROM SIDE TO SIDE AND REPOSITION.WILL CONTINUE TO MONITOR
[2020-09-08 09:32] VITALS: BP 151/77
[2020-09-08 11:43] LABS: HEMATOCRIT 23.3 % (42.0-52.0); HEMOGLOBIN 7.8 gm/dL (14.0-18.0); MCH 30.5 pg (26.0-34.0); MCHC 33.3 g/dL (28.0-37.0); MCV 91.7 fL (80.0-100.0); RBC 2.54 mil/uL (4.50-6.00); RDW 17.8 % (10.5-14.5); WBC 4.3 thou/uL (4.0-11.0)
[2020-09-08 12:02] LABS: ALBUMIN 2.2 g/dL (3.4-5.0); CALCIUM 8.2 mg/dL (8.5-10.1); CREATININE 6.5 mg/dL (0.7-1.3); MAGNESIUM 2.2 mg/dL (1.8-2.4); POTASSIUM 3.8 mmol/L (3.5-5.1); TOTAL BILIRUBIN 2.1 mg/dL (0.2-1.0); TOTAL PROTEIN 7.3 g/dL (6.4-8.2)
[2020-09-08 14:24] VITALS: BP 135/74
--- NOTE | 2020-09-08 16:48 | NUR ---
patient progressing towards dismissal goals. patient seen by neurology today. no new interventions added for new tremor. see neurology note. patient producing adequate urine output. bm today. pain medication prn.
[2020-09-08 17:45] VITALS: BP 129/68
[2020-09-08 19:37] VITALS: BP 140/66
--- NOTE | 2020-09-09 05:07 | NUR ---
ASSUMED CARE OF PT AT SHIFT CHANGE. PT IS AOX3-4 AND CAN BE FORGETFUL. FALL PRECAUTION IN PLACE. PT REPORTED LEG PAIN AND WAS TREATED WITH PRN PAIN MEDS. ASSESSMENT CHARTED. PT DENIED NAUSEA OR SOA. PT WAS ABLE TO GET COMFORTABLE AND SLEEP PART OF THE SHIFT. VSS AND NO S/S OF ACUTE DISTRESS. WILL CONTINUE TO MONITOR FOR CHANGES.
[2020-09-09 08:32] VITALS: BP 154/68
[2020-09-09 09:09] LABS: HEMATOCRIT 24.9 % (42.0-52.0); HEMOGLOBIN 8.3 gm/dL (14.0-18.0); MCH 30.5 pg (26.0-34.0); MCHC 33.5 g/dL (28.0-37.0); MCV 91.1 fL (80.0-100.0); RBC 2.73 mil/uL (4.50-6.00); RDW 17.6 % (10.5-14.5); WBC 3.7 thou/uL (4.0-11.0)
[2020-09-09 09:35] LABS: ALBUMIN 2.5 g/dL (3.4-5.0); CALCIUM 8.4 mg/dL (8.5-10.1); CREATININE 6.4 mg/dL (0.7-1.3); MAGNESIUM 2.3 mg/dL (1.8-2.4); POTASSIUM 3.8 mmol/L (3.5-5.1); TOTAL BILIRUBIN 2.2 mg/dL (0.2-1.0); TOTAL PROTEIN 7.9 g/dL (6.4-8.2)
--- NOTE | 2020-09-09 12:39 | NUR ---
ASSUMED PT CARE THIS AM. PT VSS, A&OX4. PT PLEASANT AND ABLE TO MAKE NEEDS KNOWN. IV TO RIGHT AC PATENT, SALINE LOCKED. ON ROOM AIR. WESTON CATHETER IN PLACE, DRAINING WELL. EDEMA NOTED TO BILATERAL LOWER EXTREMETIES. NO PAIN NOTED. PATIENT REPORTED VOMITING TO STAFF, GIVEN ZOFRAN AND RESOLVED AT THIS TIME. PATIENT ON TELE. UP TO BEDSIDE COMMODE WITH ASSIST. TOOK MEDS WITHOUT COMPLAINT THIS AM. FALL PRECAUTIONS IN PLACE.
--- NOTE | 2020-09-09 14:11 | NUR ---
SPOKE WITH ALFA IN ADM AT [facility] THEY DENIED REFERRAL TO LOW LEVEL FUNCTIONING.
--- NOTE | 2020-09-09 15:08 | NUR ---
[facility] INDICATED THAT THEY ARE ABLE TO ACCEPT PT FOR ADMISSION. CM ASKED NURSE TO COVID TEST HIM IN PREPERATION FOR PROBABLE DC TOMORROW. CM TO FOLLOW INDICATED WITH DC PLANNING.
[2020-09-09 17:04] VITALS: BP 132/69
[2020-09-09 21:00] VITALS: BP 157/78
[2020-09-10 04:07] VITALS: BP 141/72
--- NOTE | 2020-09-10 05:11 | NUR ---
Assumed pt care at 1900. A/OX4,VSS. C/o pain allover on assessment,medicated per EMAR with relief reported. Up with AX1 to BSC,having loose stools sp Lactulose. Abad to DD with dark yellow urine. V-paced/SB on telemetry. Edema persists to BLE,encouraged to keep extremities elevated. C/o SOA this morning, Sats 100% breathing tx administered and effective. Fall precautions in place,resting quietly w/o distress noted.Will continue to monitor pt.
[2020-09-10 06:00] LABS: HEMATOCRIT 23.6 % (42.0-52.0); MCH 30.9 pg (26.0-34.0); MCHC 34.1 g/dL (28.0-37.0); MCV 90.6 fL (80.0-100.0); RBC 2.6 mil/uL (4.50-6.00); RDW 17.5 % (10.5-14.5); WBC 3.4 thou/uL (4.0-11.0)
[2020-09-10 06:17] LABS: ALBUMIN 2.3 g/dL (3.4-5.0); CALCIUM 8.4 mg/dL (8.5-10.1); CREATININE 6.7 mg/dL (0.7-1.3); MAGNESIUM 2.3 mg/dL (1.8-2.4); POTASSIUM 3.8 mmol/L (3.5-5.1); TOTAL BILIRUBIN 1.9 mg/dL (0.2-1.0); TOTAL PROTEIN 7.5 g/dL (6.4-8.2)
[2020-09-10 08:25] VITALS: BP 144/72
--- NOTE | 2020-09-10 12:37 | NUR ---
ROXANA CALLED AND SPOKE WITH GISSELLE IN ADMISSIONS AT [facility] THIS AM TO GIVE HEADS UP THAT WE ANTICIPATED DC THIS DAY. SHE INDICATED THAT SHE NEEDED MEDS, NEGATIVE COVID TEST, AND [id number] PRIOR TO TRANSPORT. CM INDICATED THAT ALL COULD BE PROVIDED. SHE ASKED THAT TRNSPORT BE ARRANGED FOR 14OO. THEY DON'T HAVE INSURANCE AUTH. THEY HAVE SUBMITTED FOR AUTH. NOW AWAITING AUTH. CM NOTIFIED HOSPITALIST. CM TO FOLLOW INDICATED WITH HOPEFUL DC THIS DAY.
--- NOTE | 2020-09-10 12:41 | NUR ---
ASSUMED PT CARE THIS AM. PT VSS. WESTON CATHETER IN PLACE, DRAINING WELL. EDEMA NOTED IN BILATERAL LOWER EXTREMETIES. ON ROOM AIR. PATIENT CALLING WHEN NEEDED, AMBULATORY TO THE BEDSIDE COMMODE WITH ASSIST. REPORTING GENERALIZED PAIN THAT RESPONDS WELL TO MEDS GIVEN PER EMAR.CT OF HEAR COMPLETED THIS AM. ON ROOM AIR. TOOK MEDS WHOLE WITHOUT ISSUE. IV PATENT, SALINE LOCKED. FALL PRECAUTIONS IN PLACE. ON TELEMETRY.
[2020-09-10] MEDS ORDERED: LACTULOSE20 GM/30 M PO (13:16)
[2020-09-10] MEDS ORDERED: PACERONE 200 M200 M1 PO (13:16)
[2020-09-10] MEDS ORDERED: LIPITOR40 MG PO (13:16)
[2020-09-10] MEDS ORDERED: DEMADEX20 MG PO (13:16)
[2020-09-10] MEDS ORDERED: CARVEDILOL25 MG PO (13:16)
[2020-09-10] MEDS ORDERED: ACETAMINOPHEN325 M1 PO (13:16)
[2020-09-10 15:50] VITALS: BP 143/77
--- NOTE | 2020-09-10 16:28 | NUR ---
NOTIFIED PT'S [employer] INSURANCE WITH INFORMATION ON REFERRAL FAXED TO [facility] PT'S POLICY NUMBER.
[2020-09-10 19:57] VITALS: BP 138/67
--- NOTE | 2020-09-11 05:09 | NUR ---
Assumed pt care at 1900. A/OX4 with forgetfulness noted. VSS. Up with AX1 to BSC. Pt c/o pain all over,edema more on LLE than RLE. Also reports weakness,CT of spine ordered and completed. Pt encouraged to keep extremities elevated. AV paced on telemetry. Resting on the reclining chair at this time. Fall precautions in place,will continue to monitor pt.
[2020-09-11 08:00] VITALS: BP 158/80
--- NOTE | 2020-09-11 14:10 | NUR ---
Assumed pt care at 7am.Pt up in chair resting and waiting for lunch. Assessment completed.Vss but low hr noted.Pt was concerned about left lower extremity pain and swelling.Dr Saeed here,discussed dc option with pt but pt has decided on where to go.business banking relationship manager stated that pt still waiting on authourization. Am meds given with pain tab.Pt ate good at breakfast.Fall precaution in place.Will continue to monitor.
--- NOTE | 2020-09-11 16:17 | NUR ---
CM REACHED OUT TO [facility] INSURANCE REVIEWERS TWICE THIS DAY VIA PHONE AND LEFT VM. CM EMAILED AND RECIEVED RESPONSE AROUND [id number]. CM FAXED OVER ALL THERAPY NOTES SINCE 09/06 FOR REVIEW. STILL AWAITING [facility] SKILLED AUTH OF THIS NOTE.
[2020-09-11 17:50] VITALS: BP 149/82
[2020-09-11 19:39] VITALS: BP 138/71
--- NOTE | 2020-09-12 03:55 | NUR ---
Pt. awake off and on most of the shift. C/o chronic generalized pain and po pain meds given with some relief. He also c/o feeling short of air and O2 sat was 100% on room air. Pt. requesting his inhaler and RT gave him a albuteral inhaler which pt. reports relief. Bed alarm is on.
[2020-09-12 07:56] VITALS: BP 149/76
--- NOTE | 2020-09-12 09:42 | NUR ---
[employer] REVIEWERS INDICATED THAT CLINICAL WAS SENT TO TICKET MACHINE OPERATOR FOR REVIEW. AWAITING DETERMINIATION. CM FOLLOWIND REGARDING DC PLANNING.
[2020-09-12 15:25] VITALS: BP 153/85
--- NOTE | 2020-09-12 16:19 | NUR ---
ASSUMED CARE OF PATIENT AT SHIFT CHANGE. ASSESSMENT CHARTED. MEDS ADMINISTERED PER EMAR. VSS. PATIENT A&OX4, MAKES NEEDS KNOWN. C/O PAIN "ALL OVER" MEDICATED NEEDED PER EMAR. UPX1 WITH NO ISSUES. WORKED W PT/OT AND TOLERATED WELL. UNEVENTFUL SHIFT. DISCHARGE PLAN; AWAITING INSURANCE AUTHORIZATION, MEDICALLY STABLE OTHERWISE. WILL CONTINUE TO MONITOR
[2020-09-12 20:42] VITALS: BP 147/71
--- NOTE | 2020-09-13 02:48 | NUR ---
PT CARE ASSUMED WITH PT SLEEPING.PT IS A/O X4.PT IS UP WITH X1 ASSIST.PT C/O PAIN AND PAIN MANAGED WITH NORCO.PT TAKE MEDS WHOLE WITH NO ISSUES.PT HAS A WESTON CATHETER IN PLACE.IV IN RT AC SL.PT DENIED NAUSEA AND VOMITING OF THIS TIME.PT HAS A PACEMAKER ON LEFT CHEST.WILL CONTINUE TO MONITOR POC
[2020-09-13 09:30] VITALS: BP 150/68
--- NOTE | 2020-09-13 09:45 | NUR ---
[facility] DENIED SKILLED REHAB SERVICES AND OFFERED OPTION FOR PEER TO PEER BY 12:00 TODAY. INFO GIVEN TO PHYSICIAN. CM CALLED AND EXPLAINED TO PT AND SON. SON INDICATED THAT IF [facility] WON'T AUTH SKILLED HE WOULD PREFER TO HAVE TO DC HOME WIHT HIM WITH HOME HEALTH SERVICES. HE IS [facility]. HE PLANS TO CONTACT THEM TO REASSESS FOR POSSIBLE INCREASE IN SERVICES. CM TO FOLLOW INDICATED WITH DC PLANNING.
--- NOTE | 2020-09-13 13:05 | NUR ---
Assess for length of stay. Pt pending discharge soon. Tolerating po intake, ST indicates pt impulsive and noncompliant with swallow recommendations. On heart healthy, renal diet. No dialysis planned. Low nutrition risk
--- NOTE | 2020-09-13 14:10 | NUR ---
ASSUMED CARE OF PATIENT AT SHIFT NAGE. ASSESSMENT CHARTED. MEDICATIONS ADMINISTERED PER EMAR. VS REMAIN STABLE. PATIENT IS A&OX4 AND ABLE TO MAKE NEEDS KNOWN. C/O PAIN ON LOWER EXTREMITIES AT A CONSTANT 9/10. PRN PAIN ANALGESIC ADMINISTERED. PATIENT REMAINS AN ASSIST X1 WITH AMBULATION AND TRANSFER BUT PROGRESSING WITH PT&OT. PATIENT VOICES NO FUTHER NEEDS. UPON INS. DENIAL, PLAN IS FOR POSSIBLE DISCHARGE BACK HOME WITH HOME HEALTH. WILL CONTINUE TO MONITOR AND FOLLOW PLAN OF CARE
--- NOTE | 2020-09-13 14:57 | NUR ---
PEER TO PEER COMPLETED. SKILLED DENIAL UPHELD. CM NOTIFIED PT'S SON. HE INDICATED DESIRE FOR PT TO DC HOME WITH HIM RATHER THAN GO ANYWHERE LTC. SON MOVED TO APARTMENT AT [address] [place] [address]. PT HAS FWW FOR HOUSE USE SO TO GET PT A SHOWER CHAIR. INDICATED NO PCP BUT WAS RECEPTIVE TO HAVING CM SET PT UP WITH FOLLOW UP VISIT WITH PHYSICIAN HERE. SENDING REFERRALS FOR HH SERVICES. ANTICIPATE DC TO APT WITH SON AND HH SERVICE TOMORROW Wednesday09/14/20. CM FOLLOWING REGARDING DC PLANNING.
--- NOTE | 2020-09-13 17:06 | NUR ---
FAXED REFERRAL TO [facility] HH SPOKE WITH INTAKE SW SHE CANNOT ACCEPT SINCE PT HAS NO PCP.. FAXED REFERRAL TO [facility] HH SPOKE WITH [place] IN INTAKE SHE WILL ACCEPT DR CHAVEZ HOSPITALIST WILL FOLLOW FOR HH. JAMAICA AT [facility] WILL HAVE SW AT TRY TO ESTABLISH PT WITH A PCP BUT THEY WILL ACCEPT AND SEE PT AT DISCHARGE. FAX DC ORDERS/SUMMAARY TO [phone] AND CALL [phone] NOTIFY OF DC.
[2020-09-13 19:43] VITALS: BP 158/78
--- NOTE | 2020-09-14 04:34 | NUR ---
PT IS A/O X4 AND IS UP WITH ASSISTANCE TO THE CHAIR. AVPACED ON THE MONITOR. ROOM AIR. C/O PAIN. PRN PAIN MEDICATION GIVEN DIRECTED. WESTON IN PLACE AND DRAINING DARK YELLOW URINE. FALL PRECAUTIONS IN PLACE, CALL LIGHT IS WITHIN REACH. WILL CONTINUE TO MONITOR.
[2020-09-14 07:28] VITALS: BP 154/76
--- NOTE | 2020-09-14 14:58 | NUR ---
ASSUMED PT CARE THIS AM. PT VSS, A&OX4. PT MAKES NEEDS KNOWN. FALL PRECATUIONS ARE IN [place]. IV TO RIGHT AC SALINE LOCKED. WESTON CATHETER REMOVED PER DR REQUEST. BILATERAL LOWER EXTREMETY EDEMA NOTED. ON ROOM AIR. PAIN MANAGED WITH MEDS GIVEN PER EMAR. UP TO BEDSIDE COMMODE WITH ASSIT. ON TELE.
[2020-09-14 15:44] VITALS: BP 138/57
[2020-09-14 20:07] VITALS: BP 154/74
--- NOTE | 2020-09-14 21:47 | NUR ---
Pt son called earlier stating he doesn't have a wheel chair and pt can't ambulate for long;content writer notified rail gang supervisor of the situation and she got in touch with CM. Pt discharged home via stretcher by [facility] at 0,all personal belongings sent with pt.
--- NOTE | 2020-09-16 12:44 | NUR ---
PT DISCHARGED OVER THE WEEKEND 09/14 TO HOME WITH [facility] HH SPOKE WITH INTAKE AT [facility] THEY DID NOT RECEIVE DC ORDERS. FAXED DC ORDERS/SUMMARY AND RECEIVED CONFIRMATION.
[2020-09-19] MEDS ORDERED: PROVENTIL HFA6.7 G1 INH (08:04)
--- NOTE | 2020-09-19 14:05 | HC ---
[facility] [place] [address] CONSULTATION Name: DEMARIO LEVIN Room #: 462-P [facility] IN M.R.#: [id number] Admission: 09/03/20 Attend Phys: Geronimo Saeed MD Discharge: 09/14/20 Date of : 51 Report #: [id number] THIS REPORT FOR: cc: Rodney Ramirez Kevin E. DO [place], Roxane S. DO ~ NEUROLOGY CONSULT HISTORY OF PRESENT ILLNESS: The patient is a 65-year-old male. The Neurology service was asked to see in consultation for "resting tremor." I spoke with the patient, and he told me the tremor started with this hospitalization; however, the longer I spoke to him, he told me the tremor was getting better and he felt he could manage with it. To his knowledge, no one in his family has a tremor. He does not have a tremor of his head or his voice. The patient states that he is able to eat, although sometimes he has trouble eating from a spoon or fork. The patient was admitted to the hospital for bilateral lower extremity swelling. He told me that he lived with his family; however, I see he was sent here by [facility]. The patient had a 10-pound weight gain over 1 or 2 weeks and had shortness of breath. He has a history of congestive heart failure. PAST MEDICAL HISTORY: Renal failure, congestive heart failure, chronic obstructive pulmonary disease, hyperlipidemia, gastroesophageal reflux, diabetes mellitus. PAST SURGICAL HISTORY: Reconstructive surgery of the left lower extremity. MEDICATIONS AT HOME: Albuterol inhaler, gabapentin 300 mg t.i.d., furosemide 80 mg b.i.d., levothyroxine daily, ondansetron 4 mg q.6 hours, calcium 500 mg daily, Protonix 40 mg daily, polyethylene glycol 17 grams daily, folic acid 1 tablet daily, tamsulosin 0.4 mg daily. In hospital, the patient is on amiodarone 200 mg daily, atorvastatin 40 mg at bedtime, carvedilol 25 mg b.i.d., torsemide 40 mg b.i.d., Flomax 0.4 mg daily, levothyroxine 25 mcg daily, pantoprazole 40 mg daily. ALLERGIES: ORANGES. PHYSICAL EXAMINATION: VITAL SIGNS: Temperature is 36.7, pulse rate 54, respiratory rate 18, blood pressure 151/77, bedside pulse oximetry 100% on room air. NEUROLOGIC: Cranial nerves 2-12 are grossly intact. Motor exam demonstrates symmetrical movement in all 4 extremities with the exception of the left lower extremity where he has difficulty raising his leg from the bed. [place] [address] [address] CONSULTATION Name: DEMARIO LEVIN Room #: 462-P [facility] IN M.R.#: [id number] Admission: 09/03/20 Attend Phys: Geronimo Saeed MD Discharge: 09/14/20 Date of : 51 Report #: [id number] responses are flexor. Coordination with the arms outstretched he has a flexion, extension, tremor present and sometimes with the arm at rest, a supination, pronation tremor present, mostly on the right, but in both upper extremities. The tremor is distractible. Gait was not tested. LABORATORY DATA: Hematology: White blood cell count 4.3, hemoglobin 7.8, hematocrit 23.3, MCV 91.7, platelet count 85,000. Coagulation: INR 1.5. Chemistry: Sodium 127, potassium 3.8, chloride 92, carbon dioxide 29, BUN 67, creatinine 6.5, GFR 10, glucose 151, calcium 8.2, phosphorus 5, magnesium 2.2, total bilirubin 2.1, AST 55, ALT 26, alkaline phosphatase 47. TSH 2.6. IMPRESSION: This gentleman has a tremor that is distractible. 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 He may have a component of essential tremor, but this is not Parkinson's disease. At this point, I would not recommend any medication for the tremor. He was able to drink from a cup, although I did not see him eat. Given the patient's kidney functions, I do not think gabapentin is the best choice for him, as this can cause jerking and there was a slight jerking component to this tremor. I have ordered a B12 and will also order an ammonia level just to make sure there are no other causes for the tremor, but I would try to keep the patient's medication regimen as simple as possible. It should be noted that amiodarone can cause tremor, so this is something that needs to be looked for, particularly if he had no tremor before he came to the hospital. In this patient, I would also recommend an outpatient EMG to look for diabetic peripheral neuropathy. I will ask the neurologist supervisor electron tube processing tomorrow to see the patient. <ELECTRONICALLY SIGNED> By: Arcelia Morejon DO 09/19/20 1405 [id number] 1730 Arcelia Morejon DO /nt
== END 2020-09-14 21:30 | disposition home health service (06) | DRG 291 ==
LOC: ER 11:45 → 4W 13:47 → EROBS 13:47 → 4W 15:38
PROVIDERS: Emergency Medicine; Hospitalist; Internal Medicine; ADMIT Internal Medicine; ATTEND Internal Medicine
DX: I13.2 Hypertensive heart and chronic kidney disease with heart failure and with stage 5 chronic kidney disease, or end stage renal disease (principal); J96.01 Acute respiratory failure with hypoxia; I50.43 Acute on chronic combined systolic (congestive) and diastolic (congestive) heart failure; G92 Toxic encephalopathy; N18.6 End stage renal disease; N17.9 Acute kidney failure, unspecified; E87.1 Hypo-osmolality and hyponatremia; D61.818 Other pancytopenia; I48.21 Permanent atrial fibrillation; D64.9 Anemia, unspecified; J44.9 Chronic obstructive pulmonary disease, unspecified; E78.5 Hyperlipidemia, unspecified; E11.22 Type 2 diabetes mellitus with diabetic chronic kidney disease; G47.33 Obstructive sleep apnea (adult) (pediatric); K70.30 Alcoholic cirrhosis of liver without ascites; D63.8 Anemia in other chronic diseases classified elsewhere; D69.6 Thrombocytopenia, unspecified; E66.01 Morbid (severe) obesity due to excess calories; B19.20 Unspecified viral hepatitis C without hepatic coma; N40.0 Benign prostatic hyperplasia without lower urinary tract symptoms; I25.5 Ischemic cardiomyopathy; F10.11 Alcohol abuse, in remission; K21.9 Gastro-esophageal reflux disease without esophagitis; R53.81 Other malaise; R25.1 Tremor, unspecified; Z20.822 Contact with and (suspected) exposure to COVID-19; Z79.899 Other long term (current) drug therapy; Z79.4 Long term (current) use of insulin; Z91.018 Allergy to other foods; Z87.891 Personal history of nicotine dependence; Z95.810 Presence of automatic (implantable) cardiac defibrillator; Z68.23 Body mass index [BMI] 23.0-23.9, adult
CPT/HCPCS: 10045